=== PATIENT | female | born 1995 | race Caucasian/White ===

== ENCOUNTER 2016-11-30 19:47 | Emergency (ER) | payer MEDICAID, OTHER ==
[~2016-11-30] VITALS: Ht 139.7 cm; Wt 59.1 kg
[~2016-11-30 19:47] MED LIST: GUAN1TAB PO; HYDR-3797 PO; LORA-302 PO; METH-295 PO; SERT100T9 PO; WARF5TAB7 PO
[2016-11-30 19:50] VITALS: BP 104/79; PULSE 78; RESP 18; O2SAT 98
--- NOTE | 2016-11-30 20:43 | ED.REPORT ---
HPI-URI / Cough / Cold Date of Service Nov 30, 2016 ED Provider: Juanita Wei MD This is a 21 year old female with a history of cerebral palsy and dural venous thrombosis currently on warfarin presenting to the ED complaining of cough that began 3 weeks ago. Reports progressively worsening cough and congestion with difficulty coughing up sputum. Denies fever, chills, chest pain, SOB, nausea, or vomiting. Nursing Notes Stated Complaint: COLD SYMPTOMS Chief Complaint: General Complaint Nursing Notes Reviewed: Yes Allergies: Coded Allergies: No Known Allergies (Verified Allergy, Unknown, 11/30/16) Scheduled Amoxicillin/Clav K 875-125 mg (Augmentin 875-125 mg) 1 Each Tablet 1 TABLET PO BID Guanfacine (Guanfacine) 1 Mg Tablet 1 DOSE PO DAILY Hydroxyzine Pamoate (HydrOXYzine Pamoate) 25 Mg Capsule 50 MG PO HS Methylphenidate (Methylphenidate) 10 Mg Tablet 1 DOSE PO BID Sertraline HCl (Sertraline) 100 Mg Tablet 1 DOSE PO DAILY Warfarin Sodium (Warfarin Sodium) 5 Mg Tablet 7.5 MG PO , and Warfarin Sodium (Warfarin Sodium) 5 Mg Tablet 5 MG PO Mon, wed,fri,sat, hooker Scheduled PRN Lorazepam (Ativan) 0.5 Mg Tablet 1 DOSE PO PRN For Anxiety or Agitation General Time Seen by MD: 20:42 Chief Complaint Cough, productive... Hx Obtained From: Patient Arrived By: Walk-in Onset Occurred: Just prior to arrival Symptom Duration: Since onset Severity: Current: No pain currently Pertinent Negative: Pt denies other symptoms Recent Healthcare: No recent doctor visit, No recent hospitalization Similar Sx Previous: No Past Medical History Past Medical History VSD Anxiety Depression Cerebral palsy dural venous thrombosis currently on warfarin Past Surgical History Knee surgery Family History No h/o subarachnoid hemorrhage or brain tumors Smoking History Never Smoker Social History Resides with her grandmother Alcohol Use: Denies alcohol use Drug Use: Denies drug use Ambulatory Status Independent Review of Systems Constitutional: Denies: Chills, Fever Respiratory: Reports: Prod cough, clear, Denies: Dyspnea on exertion, Shortness of breath GI: Denies: Abdominal pain, Diarrhea, Nausea, Vomiting Complete sys rev & neg: except as marked. Physical Exam Initial Vital Signs Vital Signs (First) Date Time Temp Pulse Resp B/P Pulse Ox O2 Delivery O2 Flow Rate FiO2 11/30/16 19:50 36.4 78 18 104/79 98 Room Air Initial VS: Reviewed Head / Eyes: Atraumatic, Normocephalic, PERRL Neck: Supple, Non-tender, Full range of motion Cardiovascular: Regular rate & rhythm, Heart sounds normal, Intact distal pulses Abdomen / GI: Soft, Non-tender, No guarding, No rebound, No distention Extremities: Vascular intact, Neuro intact, No swelling, No tenderness Skin: Warm, Dry, No cyanosis Neurologic: Alert, Oriented, Nonfocal Psychiatric: Mood/affect normal, Behavior normal, Normal thought content General/Constitutional: Awake, Alert ENT: Airway patent, Mucous membranes moist, Pharynx NL, Tympanic membs NL, Ext aud canal NL, Nose exam NL, No sinus tenderness Respiratory / Chest: Breath sounds NL, Breath sounds = bilat, No respiratory distress, No rales, No rhonchi, No wheezing, No chest tenderness Interpretation & Diagnostics X-Ray Chest Interpretation Chest Xray Interpretation: IMPRESSION: No acute cardiopulmonary findings. Dictated by: Marzena Villeda M.D. on 11/30/2016 at 21:43 Approved by: Marzena Villeda M.D. on 11/30/2016 at 21:44 Re-Eval/Medical Decision Med Decision/Clinical Course 21-year-old female with past medical history of cerebral palsy here with persistent cough. Differential diagnosis includes but is not limited to viral upper respiratory infection versus pneumonia versus asthma versus viral pneumonia. Chest x-ray is negative, however, given patient's inability to completely clear her chest secondary to her cerebral palsy, I feel it is prudent to give her antibiotics. She is taking Coumadin 7 given her Augmentin as it will not interact with her Coumadin. She is aware and amenable to discharge and has been given very strict return precautions. Re-Evaluation/Progress : Time of Eval: 21:52 Re-Evaluation/Progress Note: Discussed imaging results and plan for d/c, all questions addressed. Counseled Regarding: Diagnosis, Lab results, Need for follow-up, When/why to return to ED Discharge & Departure Impression: Primary Impression: Cough Disposition: Home Discharge Condition All VS Reviewed: Yes Condition: Stable Additional Instructions: Take Augmentin as prescribed. Follow up with your primary care provider. Return to the emergency department for any new or worsening symptoms Referrals: Prasad Jaramillo (PCP) Scribe Attestation Portions of this note were transcribed by Christopher Valencia. I, Dr. Wei personally performed the history, physical exam and medical decision-making; I reviewed and confirmed the accuracy of the information in the transcribed note. Signed by: kinza Gimenez. 11/30/2016, 22:00. Juanita Wei MD Nov 30, 2016 20:43 CHRISTOPHER VALENCIA Nov 30, 2016 20:45
[2016-11-30] MEDS ORDERED: Amoxicillin-Clav 875-125 mg Tablet PO ONE (21:30)
--- NOTE | 2016-11-30 21:45 | DRSVH ---
PROCEDURE: X-RAY CHEST, TWO VIEWS ([id number]) INDICATIONS: cough TECHNIQUE: 2 views of the chest were acquired. COMPARISON: None. FINDINGS: Surgical changes and devices: None. Lungs and pleura: No pleural effusions or pneumothorax. Lungs are clear. Mediastinum: Mediastinal contours are normal. Heart size is normal. Bones and chest wall: No suspicious bony abnormalities. Soft tissues appear unremarkable. IMPRESSION: No acute cardiopulmonary findings. Dictated by: Marzena Villeda M.D. on 11/30/2016 at 21:43 Approved by: Marzena Villeda M.D. on 11/30/2016 at 21:44
[2016-11-30] MEDS ORDERED: AMOX-366 PO (21:51)
[2017-01-19] MEDS ORDERED: ACET-2561 PO (16:30)
[2017-02-16] MEDS ORDERED: AMPH25CA3 PO (11:50)
== END 2016-11-30 21:58 | disposition home or self-care (01) ==
LOC: SED 19:47
DX: R05 Cough (principal); G80.9 Cerebral palsy, unspecified; Z79.01 Long term (current) use of anticoagulants

== ENCOUNTER 2017-03-15 11:02 | Emergency (ER) | payer OTHER ==
[~2017-03-15] VITALS: Ht 142.2 cm; Wt 55.5 kg
[~2017-03-15 11:02] MED LIST changes: +ACET-2561 PO; +AMPH25CA3 PO; -HYDR-3797 PO; -LORA-302 PO; -METH-295 PO
[2017-03-15 11:09] VITALS: BP 111/72; PULSE 71; RESP 16; O2SAT 98
[2017-03-15 11:55] LABS: BASOPHILS % (AUTO) 0.4 % (0-3); EOSINOPHILS % (AUTO) 2.2 % (0-5); MONOCYTES % (AUTO) 9.9 % (4-12); Mean Corpuscular Hemoglobin 26.4 pg (27.0-35.0); Mean Corpuscular Volume 82.2 fL (81-100); NEUTROPHILS % (AUTO) 50.4 % (40-74); Platelet Count 303 bil/L (150-400)
[2017-03-15 12:25] LABS: Magnesium 1.9 mg/dL (1.6-2.6)
--- NOTE | 2017-03-15 12:50 | ED.REPORT ---
HPI-Abd Pain F Under 40 Date of Service March 15, 2017 ED Provider: Asif Craig MD A 21 year old female on Warfarin with a history of VSD, cerebral palsy, anxiety , depression and dural venous thrombosis presents to the ED complaining of abdominal pain.The pt has been experiencing intermittent abdominal pain for several months, but noticed the pain increasing last night. The pain worsened significantly and is exacerbated by motion, ranging from 6/10 to 9/10. The pt describes the pain as "sharp, shooting pain" when she moves and dull when she is resting. This is accompanied by nausea and lack of appetite, though the pt denies vomiting, fever, chills, diaphoresis, chest pain, cough or dysuria. The pt has not taken any medications to treat her symptoms this morning. Nursing Notes Stated Complaint: PAIN IN UPPER LEFT ABD,UNDER RIB CAGE Chief Complaint: Female Abdominal Pain Nursing Notes Reviewed: Yes ([employer] not reconciled) Allergies: Coded Allergies: No Known Allergies (Verified Allergy, Unknown, 03/15/17) Scheduled Acetaminophen (Extra Strength Non-Aspirin) 500 Mg Tablet 1,000 MG PO PRN Dextroamphetamine/Amphetamine ER (Adderall XR) 25 Mg Capsule 25 MG PO DAILY Guanfacine (Guanfacine) 1 Mg Tablet 1 DOSE PO DAILY Sertraline HCl (Sertraline) 100 Mg Tablet 1 DOSE PO DAILY Warfarin Sodium (Warfarin Sodium) 5 Mg Tablet 5 MG PO DAILY Scheduled PRN Hydrocodone-Acetaminophen 5-325 mg (Hydrocodone-Acetaminophen 5-325 mg) 1 Each Tablet 1-2 TABLET PO Q4H PRN PRN For Pain General Time Seen by MD: 12:08 Chief Complaint Abdominal pain Hx Obtained From: Patient Arrived By: Walk-in Sudden in Onset?: No Onset Occurred: 1 day ago Symptom Duration: Since onset Recent Healthcare: Recent doctor visit, Recent hospitalization Similar Sx Previous: No Past Medical History Past Medical History Ventricular septal defect Anxiety Depression Suicidal ideation Violent outbursts Cerebral palsy dural venous thrombosis currently on warfarin Past Surgical History Knee surgery L Family History No h/o subarachnoid hemorrhage or brain tumors Smoking History Never Smoker Social History Resides with her grandmother Alcohol Use: Denies alcohol use Drug Use: Denies drug use Ambulatory Status Independent Review of Systems Review of Systems Note: lack of appetite Constitutional: Denies: Chills, Fever Respiratory: Denies: Non-productive cough, Shortness of breath Cardiovascular: Denies: Chest pain GI: Reports: Abdominal pain, Nausea, Denies: Vomiting Female: Denies: Dysuria Complete sys rev & neg: except as marked. Skin: Denies Diaphoresis, Denies Rash Physical Exam Initial Vital Signs Vital Signs (First) Date Time Temp Pulse Resp B/P Pulse Ox O2 Delivery O2 Flow Rate FiO2 03/15/17 11:09 36.2 71 16 111/72 98 Room Air Initial VS: Reviewed, Vital signs normal General/Constitutional: Awake, Alert mild developmentat delay Respiratory / Chest: Atraumatic, Breath sounds NL, Breath sounds = bilat, No respiratory distress Cardiovascular: Heart rate NL, Regular rhythm, Heart sounds NL Abdomen: Atraumatic, Soft trace tenderness of left abdomen Back: Atraumatic, Full range of motion Head / Eyes: Atraumatic, Normocephalic, PERRL, EOMI ENT: Atraumatic, Airway patent Mouth: Positive: Mucous membranes dry dry, chapped lips Skin: Atraumatic, Color NL, No rash, Warm, Dry Neurologic: Oriented X3, Speech NL, No motor deficits, No sensory deficits Neck: Atraumatic, Supple, Full range of motion Upper Extremity / MS: Atraumatic, Full range of motion Lower Extremity / Pelvis / MS: Atraumatic, Full range of motion Psychiatric: Affect NL, Mood NL Interpretation & Diagnostics Lab Results Interpretation Result Diagram: 03/15/17 1138 03/15/17 1138 Test 03/15/17 11:30 03/15/17 11:38 Hold Urine Received (Received) White Blood Count 7.6th/mm3 (3.8-10.1) Red Blood Count 4.73mil/mm3 (3.90-5.20) Hemoglobin 12.5g/dL (12.0-15.6) Hematocrit 38.9% (35.0-46.0) Mean Corpuscular Volume 82.2fL (81-100) Mean Corpuscular Hemoglobin 26.4pg (27.0-35.0) Mean Corpuscular Hemoglobin Concent 32.1% (32.0-37.0) Red Cell Distribution Width 15.4% (12.3-15.4) Platelet Count 303bil/L (150-400) Neutrophils (%) (Auto) 50.4% (40-74) Lymphocytes (%) (Auto) 36.8% (14-46) Monocytes (%) (Auto) 9.9% (4-12) Eosinophils (%) (Auto) 2.2% (0-5) Basophils (%) (Auto) 0.4% (0-3) Sodium Level 143mEq/L (134-144) Potassium Level 4.4mEq/L (3.5-5.2) Chloride Level 105mEq/L (97-108) Carbon Dioxide Level 28mmol/L (18-29) Blood Urea Nitrogen 17mg/dL (6-20) Creatinine 0.51mg/dL (0.57-1.00) Estimat Glomerular Filtration Rate 214mL/min (>59) Glucose Level 91mg/dL (60-99) Calcium Level 9.7mg/dL (8.5-10.1) Magnesium Level 1.9mg/dL (1.6-2.6) Total Bilirubin 0.2mg/dL (0.0-1.2) Aspartate Amino Transf (AST/SGOT) 15U/L (0-50) Alanine Aminotransferase (ALT/SGPT) 11U/L (0-32) Alkaline Phosphatase 71U/L (25-150) Total Protein 6.7g/dL (6.4-8.4) Albumin 4.1g/dL (3.4-5.0) Lipase 29U/L (13-60) Hold [place] Top Tube Received (Received) CT Abd / Pelvis Interpretation IMPRESSION: 1. Mesenteric adenitis. 2. Possible malpositioning of intrauterine device, which could be further assessed with ultrasound, if clinically indicated. 3. Normal appendix. Dictated by: Carol Mckenzie M.D. on 03/15/2017 at 13:37 Approved by: Carol Mckenzie M.D. on 03/15/2017 at 13:39 Interpretation / Wet Read by: Interpret - Radiologist Re-Eval/Medical Decision Med Decision/Clinical Course This is a 21-year-old female mild cerebral palsy presents complaining of a 1 day history of worsening severe abdominal pain. She has had some intermittent mild on and off discomfort, but really became intense last night, woke her from sleep several times and has persisted today. She had no fever, nausea vomiting or additional complaints. Lips and mucous membranes on evaluation, her abdomen is quite benign with only trace tenderness in the left side. Her exam is complicated by her history-she has cerebral palsy for example, and all of though her clinical presentation seems benign at the bedside, a workup was pursued due to this. Blood work was normal, CT was interpreted as suggestive of mesenteric adenitis. The patient is hydrated, feels much better. I am not finding signs of dangerous pathology, routine precautions reviewed. Patient is discharged some limited pain medicine. She is follow up PCP, return precautions reviewed. Discharge patient is comfortable, well-appearing, ambulatory and asymptomatic. Source of Hx: Old records Re-Evaluation/Progress : Time of Eval: 17:05 Patient Status: Condition improved Re-Evaluation/Progress Note: Pt rechecked, who has passed her road test. The diagnosis and plan for discharge are discussed. The pt and her family understand and agree with the plan. All questions are addressed at this time. Differential Diagnosis: Positive: Acute abdominal pain, Negative: Appendicitis, Bowel obstruction, Cholangitis, Diarrhea, Ectopic preg ruptured, Ectopic , Gun shot wound abdomen, Pancreatitis, Peptic ulcer disease, Peritonitis, Stab wound abdomen, Trauma, abdominal, Volvulus Counseled Regarding: Diagnosis, Lab results, Need for follow-up, When/why to return to ED Discharge & Departure Primary Impression: Mesenteric adenitis Disposition: Home Discharge Condition All VS Reviewed: Yes Condition: Stable Additional Instructions: 1. Your blood tests were normal. 2. Your CT scan suggests a condition called mesenteric adenitis. This is caused by inflammation of the lymph nodes that are normal in the intestine- while painful, symptoms generally resolve with time and no additional treatment beyond supportive care is needed. 3. Take ibuprofen 400-800 mg up to 3 times a day if needed for pain. 4. If needed for more severe pain he can take hydrocodone/APAP 05/325 1-2 tabs (start with one!) Up to every 4-6 hours. Note: This medication contains narcotic and causes drowsiness. No driving or activities or require intense concentration or coordination if you need to take. Take only if needed for more severe pain and use sparingly. 5. No dietary restrictions, but take it easy. Drink plenty of fluids. 6. Return again to the emergency department if new or worsening symptoms- increasing or uncontrolled pain. Symptoms not resolving, new or concerning symptoms developing. Referrals: Sierra Pool (PCP) Scribe Attestation Portions of this note were transcribed by Sherice Mercedes. I, Dr. Craig personally performed the history, physical exam and medical decision-making; I reviewed and confirmed the accuracy of the information in the transcribed note. Signed by: Fernando Harding, 03/15/2017 and 1720. copies to: Sierra Pool Matthew F MD March 15, 2017 12:50 SHERICE MERCEDES March 15, 2017 12:58
[2017-03-15] MEDS ORDERED: 0.9% Sodium Chloride 1,000 ML IV ONE ×2 (12:55)
--- NOTE | 2017-03-15 13:40 | DRSVH ---
PROCEDURE: CT ABDOMEN AND PELVIS WITH CONTRAST ([id number]) INDICATIONS: Abd pain TECHNIQUE: After the administration of intravenous contrast, 5 mm thick sections acquired from the diaphragm to the symphysis. 5 mm coronal and sagittal reformats were acquired. For radiation dose reduction, the following was used: automated exposure control, adjustment of mA and/or kV according to patient siz e. COMPARISON: None. FINDINGS: Image quality: Excellent. ABDOMEN: Lung bases: Lung bases are clear. Heart size is normal. Solid organs: Liver and spleen are normal in size and enhancement. Gallbladder is within normal sorensen its. Biliary system is non dilated. Pancreas enhances normally. No adrenal nodules. Kidneys demon strate normal size and enhancement, without hydronephrosis. Peritoneum and bowel: Bowel loops demonstrate normal wall thickness and caliber. No free fluid or a ir. Normal appendix. Nodes and vessels: Multiple mildly prominent lymph nodes within the left upper quadrant mesentery. Ao rta and inferior vena cava are normal in size. Miscellaneous: No ventral hernias. PELVIS: Genitourinary: Bladder wall thickness is normal. An intrauterine device is present, which appears t o prolapse into the mid/inferior uterine canal. Miscellaneous: No inguinal hernias or adenopathy. Bones: No suspicious bony lesions. No vertebral body compression fractures. IMPRESSION: 1. Mesenteric adenitis. 2. Possible malpositioning of intrauterine device, which could be further assessed with ultrasound, i f clinically indicated. 3. Normal appendix. Dictated by: Carol Mckenzie M.D. on 03/15/2017 at 13:37 Approved by: Carol Mckenzie M.D. on 03/15/2017 at 13:39
[2017-03-15 13:58] VITALS: BP 91/62; PULSE 63; RESP 16; O2SAT 100
[2017-03-15 15:12] VITALS: BP 88/56; PULSE 64; RESP 16; O2SAT 98
[2017-03-15 15:13] VITALS: BP 92/58; PULSE 64; RESP 16; O2SAT 98
[2017-03-15] MEDS ORDERED: HYDR-4003 PO (15:34)
[2017-03-15 15:39] VITALS: BP 105/64; PULSE 67; RESP 18; O2SAT 99
[2017-03-15] MEDS ORDERED: 0.9% Sodium Chloride 500 ML IV ONE (15:55)
[2017-03-15 17:12] VITALS: BP 96/64; PULSE 60; RESP 18; O2SAT 100
== END 2017-03-15 17:15 | disposition home or self-care (01) ==
LOC: SED 11:02
DX: I88.0 Nonspecific mesenteric lymphadenitis (principal); G80.9 Cerebral palsy, unspecified; Q21.0 Ventricular septal defect; Z79.01 Long term (current) use of anticoagulants
CPT/HCPCS: 36415; 74177; 80053; 81025; 83690; 83735; 85025; 96360; 96361; 99285; J7030; J7040; Q9967